=== PATIENT | female | born 1980 | race Caucasian/White ===

== ENCOUNTER 2016-09-05 08:59 | Outpatient (RCR) | payer BC ==
[2014-08-19 16:25] VITALS: BP 118/80
[~2016-09-05 08:59] MED LIST: HYDROCODONE/APAP
== END 2016-11-26 10:35 | disposition home or self-care (01) ==
LOC: PT 08:59
DX: M75.21 Bicipital tendinitis, right shoulder (principal)

== ENCOUNTER → 2018-08-20 | Outpatient (CLI) | payer BC ==
[2014-08-19 16:25] VITALS: BP 118/80
== END ==
LOC: RAD 12:21
DX: N60.02 Solitary cyst of left breast (principal)